=== PATIENT | female | born 1995 | race Caucasian/White ===

== ENCOUNTER 2016-03-21 08:20 | Emergency (ER) | payer BC, SELFPAY ==
[2016-03-21 08:27] VITALS: TEMP 97.9; BMI 30.2
[2016-03-21] MEDS ORDERED: ACETAMINOPHEN 325 MG/TAB TABLET PO ONE (08:43)
--- NOTE | 2016-03-21 08:47 | EDPRACDOC ---
- General Chief Complaint: Nosebleed Stated Complaint: NOSE INJURY Time Seen by Provider: 03/21/16 08:36 Information Source: Patient - History of Present Illness Onset: last night HPI: C/o mechanical fall and hitting face on door frame last night, with subsequent nose bleed, swelling of nose, LEIJA. Pt states there was a lot of bleeding. Denies LOC, vision changes, dizzyness, neck pain, mentation changes, sob, cp, N/V/D. Has a UTI and currently taking abx. Med hx = none. Surgical hx = none. Pain Severity: Reports: Moderate Injuries/Pain Location: Reports: face (nose) Reason for Fall: Reports: tripped Loss of Consciousness: no loss of consciousness Associated Symptoms (Fall): Reports: headache Allergies/Adverse Reactions: Allergies No Known Allergies Allergy (Verified 10/20/15 13:45) Home Medications: Ambulatory Orders No Home Medications 03/21/16 ED Past Medical History - History Reviewed Yes Nurses notes reviewed and agree except as marked - Patient Medical History Psychological History: Denies: Depression Surgical History: Denies: Hysterectomy - Social Medical History Smoking Status: Never smoker EDM Review of Systems - Review of Systems ROS Negative Except as Marked: Yes All systems reviewed and were negative except as marked Nose: Bleeding, Ecchymosis, Swelling, Tender - Physical Exam Constitutional: No apparent distress, Alert Oriented to: Time, Person, Place Last recorded Vital Signs: Last Vital Signs Temp 97.9 F 03/21/16 08:23 Pulse 66 03/21/16 08:27 Resp 22 03/21/16 08:27 BP 129/69 03/21/16 08:27 Pulse Ox 100 03/21/16 08:27 Oxygen Pulse Oxygen Saturation 100 O2 Device Room Air Oxygen Flow Rate Fraction of Inspired Oxygen ( FIO2) - HEENT Head: Normal Eye Exam: Normal Oropharynx: Normal TMJ: Normal Nose: Bleeding, Ecchymosis, Swelling, Tender Neck: Normal - Respiratory/Cardiovascular Respiratory: Normal - CTA Cardiovascular: Normal - GI Tenderness: Non tender - Musculoskeletal Back: Normal Extremities: Normal - Integumentary Skin: Normal - Neurologic Mood Description: Normal Thought: Coherent Perception: Normal ED Injury/Fall Exam - Physical Exam Head Injury: ecchymosis, swelling, tenderness (nose). negative: active bleeding , Durán's Sign Extremity Exam: no evidence of injury Skin: Normal - Diagnostic Imaging Facial bones Image interpreted by: Radiologist EXAM: NASAL BONES - 3+ VIEW COMPARISON: None available FINDINGS: Radiopaque nasal piercing suspected on the right. Nasal bones appear intact. No significant depressed or displaced nasal bone fracture appreciated. Sinuses remain clear. Orbits appear symmetric. IMPRESSION: No acute finding by plain radiography Electronically Signed By: Chelly Enamorado M.D. On: 03/21/2016 09:09 Decision Time to Discharge: 09:19 - Departure Disposition: Home Condition: Stable Final Diagnosis: Nosebleed Instructions: Nosebleed (ED) Education/Counseling Given To: Patient Education/Counseling Given Regarding: Diagnosis, Treatment, Prognosis, Follow Up Referrals: Jersey Mccullough MD [Staff Physician] - One Week Prescriptions: No Action No Home Medications 0 NA DIR #0 info Additional Instructions: Follow up with primary care. Return to ED for any new or worsening symptoms.
--- NOTE | 2016-03-21 09:12 | DIRPT ---
CLINICAL DATA: Fall, facial injury, trauma EXAM: NASAL BONES - 3+ VIEW COMPARISON: None available FINDINGS: Radiopaque nasal piercing suspected on the right. Nasal bones appear intact. No significant depressed or displaced nasal bone fracture appreciated. Sinuses remain clear. Orbits appear symmetric. IMPRESSION: No acute finding by plain radiography Electronically Signed By: Chelly Enamorado M.D. On: 03/21/2016 09:09
[2016-03-21 09:49] VITALS: BP 123/68; PULSE 65
== END 2016-03-21 09:49 | disposition home or self-care (01) ==
LOC: ED 08:20
DX: R04.0 Epistaxis (principal)
CPT/HCPCS: 70160; 99283; J3490